=== PATIENT | female | born 1960 | race Caucasian/White ===

== ENCOUNTER 2018-01-09 09:13 | Emergency (ER) | payer OTHER ==
[2018-01-09] MEDS ORDERED: DEXAMETHASONE SOD PHOS INJ 10 MG/1 ML VIAL IM ONE (09:30)
[2018-01-09] MEDS ORDERED: KETOROLAC TROMETHAMINE INJ/PF 30 MG/1 ML SDV IM ONE (09:30)
[2018-01-09] MEDS ORDERED: LIDOCAINE 5% (700 MG) TRANSDERMAL ADH..PATCH TP ONE (09:30)
--- NOTE | 2018-01-09 09:36 | ER Document Report ---
ED Neck/Back Problem - General Chief Complaint: Neck Pain >24hrs old Stated Complaint: SHOULDER/ARM PAIN Time Seen by Provider: 01/09/18 09:22 Mode of Arrival: Ambulatory Information source: Patient Notes: 57-year-old female presents to ED for complaint of pain down the left neck across the left shoulder and down to the left upper arm for the last 3 weeks. She states it is been worse for the last 4 days. She states it started out as a crick in the neck but now is shooting down the left arm he states she had neck pain for 2-3 months in 2012 and was told that she just had some degeneration. She states she has not been to a doctor in the last 3 weeks while she had this pain she states she has lived in [place] for 11 months and is not yet got a primary doctor. Patient is alert and oriented respirations regular and unlabored speaking in full sentences and able to walk with a even steady gait. I instructed patient to please call her insurance company had them give her the website where she finds a local doctor that takes her insurance to use as her primary care doctor. Patient verbalized agreement with this plan. TRAVEL OUTSIDE OF THE [place] IN LAST 30 DAYS: No - HPI Patient complains to provider of: Neck - Left side of the neck across the left shoulder and down the left arm Onset: Other - 3 weeks with it being worse for the last 4 days Onset: Gradual Timing: Waxing and waning, Still present, Worse Quality of pain: Sharp, Throbbing Severity: Moderate Pain Level: 4 Recent injury: No Associated symptoms: Like prior neck/back pain, Radiation to arm, Upper back pain, Other - Left neck left upper shoulder. denies: Motor loss, Numbness/ tingling, Radiation to chest, Radiation to leg, Sensory loss, Sweaty, Unable to urinate, Lower back pain Exacerbated by: Movement of neck Relieved by: Nothing Similar symptoms previously: Yes Recently seen / treated by doctor: No - Related Data Allergies/Adverse Reactions: Sulfa (Sulfonamide Antibiotics) Allergy (Verified 01/09/18 09:15) Past Medical History - General Information source: Patient - Social History Smoking Status: Never Smoker Cigarette use (# per day): No Chew tobacco use (# tins/day): No Smoking Education Provided: No Frequency of alcohol use: Rare Drug Abuse: None Occupation: [employer] Lives with: Family Family History: CAD, Hyperlipidemia, Hypertension Patient has suicidal ideation: No Patient has homicidal ideation: No - Past Medical History Cardiac Medical History: Reports: Hx Hypercholesterolemia EENT Medical History: Reports: None Neurological Medical History: Reports: None Endocrine Medical History: Reports: Hx Diabetes Mellitus Type 2 - was but has resolved Renal/ Medical History: Reports: None GI Medical History: Reports: None Musculoskeltal Medical History: Reports Hx Musculoskeletal Deformity - Similar neck pain in 2013 for 2-3 months Psychiatric Medical History: Reports: None Traumatic Medical History: Reports: None Infectious Medical History: Reports: None Past Surgical History: Reports: Hx Cholecystectomy, Hx Tubal Ligation - Immunizations Immunizations up to date: Yes Review of Systems - Review of Systems Musculoskeletal: Muscle pain, Muscle stiffness, Neck pain Neurological/Psychological: No symptoms reported Physical Exam - Vital signs Vitals: Temp Pulse Resp BP Pulse Ox 98.3 F 71 16 184/76 H 98 01/09/18 09:19 01/09/18 09:19 01/09/18 09:19 01/09/18 09:19 01/09/18 09:19 - Back Back: Normal, Tender - Left neck. No: Deformity/step-off, CVA tenderness, Vertebra tenderness, Scars, Scoliosis, Wounds - Extremities General upper extremity: Normal inspection, Normal color, Normal ROM, Normal temperature General lower extremity: Normal inspection, Nontender, Normal color, Normal ROM , Normal temperature, Normal weight bearing. No: Vaishali's sign Shoulder: Tender - Pain radiates from the left neck down the left shoulder to about jail down the arm Arm: Tender - Tender to palpation left Course - Re-evaluation Re-evalutation: 01/09/18 20:17 X-ray was discussed with patient and written report of x-ray was given to patient. Patient was treated with Toradol Decadron and Lidoderm patch in the emergency room for her pain to her neck radiating down her arm. Patient CT showed chronic degenerative disc disease. Patient was instructed to follow-up with her primary doctor and get a back specialist for this degenerative disc disease with radiculopathy. - Vital Signs Vital signs: Temp Pulse Resp BP Pulse Ox 98.1 F 60 16 152/78 H 98 01/09/18 10:44 01/09/18 10:44 01/09/18 10:44 01/09/18 10:44 01/09/18 10:44 - Diagnostic Test Radiology reviewed: Image reviewed, Reports reviewed Discharge - Discharge Clinical Impression: Degenerative disc disease, cervical, Acute cervical radiculopathy Condition: Stable Disposition: HOME, SELF-CARE Instructions: Family Physicians / Practices, Use of [id number] Ibuprofen ([facility]) Additional Instructions: You were seen today for pain in your left neck going across to shoulder down the arm. You have degenerative disc disease and your cervical spine this causes inflammation to the nerves they go through this area at times. Radiculopathy Radiculopathy is irritation of a nerve. Sometimes this is called "pinched nerve." The pain can be sharp and stabbing, constant and dull, or burning in nature. The pain can occur in any area of the chest, shoulders, or arms. Sometimes the pain is provoked by coughing or moving. Radiculopathy can be caused by physical pressure on a nerve, such as a herniated disc or swollen joint in the spine. It can also be caused by viral infections within the nerve or by nerve damage due to diabetes or blood vessel disease. Radicular pain is treated with antiinflammatory medicine. Injections may help resistant cases, if we can identify a single nerve that's causing the pain. Surgery is usually not necessary. If symptoms do not improve with time, you may need additional testing, such as an MRI or EMG (electromyogram). Return if there is local weakness or numbness, shortness of breath, increasing pain, or other new symptoms. Anti-Inflammatory Medication You will need an anti-inflammatory medication for this discomfort. This is an excellent, safe drug for pain control. In addition, it has potent antiinflammatory effects which are beneficial, especially in the treatment of injuries, arthritis, or tendonitis. It's best to take this medicine with food. Persons with ulcer disease or allergy to aspirin should notify their physician of this before taking this drug. Take the medication exactly as prescribed. Don't take additional doses unless instructed to do so by your doctor. If you develop wheezing, shortness of breath, hives, faintness, stomach pain, vomiting, or dark black stools, return for re-evaluation at once. You can choose whether he would like to use [id number] (Advil ibuprofen, Motrin) or Aleve. I will send her home with a prescription for some steroids and some muscle relaxers to help with his pain. Muscle Relaxers Muscle relaxing medications are usually prescribed for acute muscle spasm or injury to the neck and back. They are often combined with antiinflammatory pain medication for increased relief. You may stop the muscle relaxer when the pain and stiffness have improved. Start the medication again if spasms recur. Muscle relaxers may cause drowsiness, especially with the first dose. Do not operate machinery or drive while under the effects of the medication. Most muscle relaxers last up to 24 hours. Do not combine the medication with alcohol. STEROID MEDICATION: You have been given a medicine of the cortisone/steroid class. This medication is used to control inflammation or allergy. It is usually only given for a short period of time, until the acute process subsides. There are usually no side effects from short-term use of cortisone-like medications. Some persons feel an increased sense of well-being and are not sleepy at bedtime. Long-term use of cortisone medications is best avoided, unless required for a severe condition. If your condition does not remit, or relapses after the course of corticosteroid medication, you should consult your physician. Exercise Program for the Shoulder keep your shoulders stiff or this will cause a frozen shoulder try the exercises below as you are able to do them without causing a lot of pain. Since the shoulder moves in so many directions, the joint attachment is weak. Muscles provide most of the stability to the shoulder. You must exercise your shoulder to prevent painful instability or stiffening. PASSIVE - These may be begun within a few days of the injury. While standing, lean forward, allowing the arm to hang down towards the floor. Move the arm in small circles while slowly twisting your chest towards and away from the hanging arm. Do this for one minute. ACTIVE - These may be performed when the doctor gives permission. Begin with the arms at the sides. Raise the arms forward (shoulder's width apart) until they reach shoulder level. Then slowly swing both arms back until they are aiming straight out away from each other. Then bring them forward again, and finally, lower them to your sides. Repeat 20 to 30 times. As you improve, put weights in your hands for the exercise. Start with one pound, and work up to 10 pounds. Never use more than is comfortable. Athletes may work up to 30 pounds. FOLLOW-UP CARE: If you have been referred to a physician for follow-up care, call the physician s office for an appointment as you were instructed or within the next two days. If you experience worsening or a significant change in your symptoms, notify the physician immediately or return to the Emergency Department at any time for re-evaluation. Prescriptions: Cyclobenzaprine HCl [Flexeril 10 mg Tablet] 10 mg PO TIDP PRN #15 tab PRN Reason: Prednisone [Deltasone 20 mg Tablet] 3 tab PO DAILY 5 Days tablet Forms: Elevated Blood Pressure, Return to Work
--- NOTE | 2018-01-09 10:31 | RADIOLOGY REPORT (SQ) ---
EXAM DESCRIPTION: CERV SP 4 OR 5 VIEWS COMPLETED DATE/TIME: 01/09/2018 9:54 am REASON FOR STUDY: neck pain with radiation to left arm COMPARISON: None. NUMBER OF VIEWS: Five views. TECHNIQUE: AP, lateral, obliques and odontoid radiographic images acquired of the cervical spine. LIMITATIONS: None. FINDINGS: MINERALIZATION: Normal. ALIGNMENT: There is some mild loss of the normal cervical lordosis. VERTEBRAE: Vertebral bodies of normal height. DISCS: There is decrease in the C5-C6 disc space heights with associated osteophytic lipping. FORAMINA: No osteophytes or foraminal narrowing. LATERAL AND POSTERIOR ELEMENTS: Facets, lateral masses and spinous processes without significant find ings. HARDWARE: None in the spine. SOFT TISSUES: No masses or calcifications. Lung apices clear. OTHER: No other significant finding. IMPRESSION: Mild degenerative changes as noted above. TECHNICAL DOCUMENTATION: JOB ID: [id number] [employer]- All Rights Reserved Reading location - IP/workstation name: [email or web address]
[2018-01-09 10:45] VITALS: BP 152/78
== END 2018-01-09 10:57 | disposition home or self-care (01) ==
LOC: ER 09:13
DX: M50.322 Other cervical disc degeneration at C5-C6 level (principal); M54.12 Radiculopathy, cervical region; M25.512 Pain in left shoulder; Z88.2 Allergy status to sulfonamides; Z98.51 Tubal ligation status; Z90.49 Acquired absence of other specified parts of digestive tract
CPT/HCPCS: 99283; 96372; 72050; J1885; J1100